=== PATIENT | female | born 1955 | race Caucasian/White ===

== ENCOUNTER → 2017-02-05 | Outpatient (CLI) | payer BC ==
[~2017-02-05] MED LIST: ACTIVELLA1 TAB PO; ALLEGRA-D 241 TABLET PO; LUMIGAN 0.50 DROP/2. BOTH EYES; PAROXETINE HCL20 MG PO
== END | disposition home or self-care (01) ==
LOC: NUC 10:18
DX: K82.8 Other specified diseases of gallbladder (principal); R11.0 Nausea
CPT/HCPCS: 78227; A9537; J2805

== ENCOUNTER 2017-08-22 09:44 | Emergency (ER) | payer BC ==
[~2017-08-22] VITALS: Ht 165.1 cm; Wt 79.0 kg
[2017-08-22 10:34] LABS: BASOPHIL (%) 0.5 % (0-1); BASOPHIL COUNT 0.1 K/uL (0-0.1); EOSINOPHIL (%) 0.3 % (0-5); HEMATOCRIT 41.2 % (36.0-46.0); IMMATURE GRANULOCYTE (%) 0.3 % (0.0-0.7); LYMPHOCYTE (%) 19.6 % (15-42); LYMPHOCYTE COUNT 1.8 K/uL (1.0-2.8); MCH 34.9 PG (29.0-34.0); MCV 102.7 FL (83-99); MONOCYTE (%) 9.7 % (3-12); MONOCYTE COUNT 0.9 K/uL (0-0.8); NEUTROPHIL (%) 69.6 % (45-76); NEUTROPHIL COUNT 6.5 K/uL (1.8-6.4); PLATELET COUNT 256 K/uL (156-360); RBC DIS.WIDTH-CV 12.9 % (11.8-14.6); RBC DIS.WIDTH-SD 49.5 % (39-53); RED BLOOD COUNT 4.01 M/uL (3.80-5.20); WHITE BLOOD COUNT 9.4 K/uL (4.1-10.2)
[2017-08-22 10:45] LABS: CHLORIDE 104 mEq/L (99-109); POTASSIUM 4.6 mEq/L (3.7-5.4); SODIUM 138 mEq/L (136-147)
[2017-08-22 10:47] LABS: GLUCOSE 106 mg/dL (70-99)
[2017-08-22 10:51] LABS: CREATININE 0.7 mg/dL (0.6-1.3); GFR ESTIMATE (CALCULATED) > 59 mL/min/; UREA NITROGEN (BUN) 9 mg/dL (9-23)
[2017-08-22 11:14] LABS: APPEARANCE CLOUDY ((CLEAR)); BILIRUBIN NEGATIVE; BLOOD NEGATIVE; COLOR YELLOW ((YELLOW)); GLUCOSE (STRIP) NEGATIVE; KETONES 5; LEUKOCYTES NEGATIVE; NITRITE NEGATIVE; PROTEIN (STRIP) 30; SPECIFIC GRAVITY 1.023 (1.000-1.030); UROBILINOGEN 0.2 MG/DL (0.2-1.0)
[2017-08-22 11:50] LABS: BACTERIA 2+ /HPF; EPITHELIAL CELLS 2+ /HPF; MUCUS 2+ /LPF; RED BLOOD CELLS NONE SEEN /HPF (0-5); UCUL ADDED? YES; WHITE BLOOD CELLS NONE SEEN /HPF (0-5)
[2017-08-22 14:26] VITALS: BP 127/67
== END 2017-08-22 14:35 | disposition home or self-care (01) ==
LOC: EME 09:44
PROVIDERS: Emergency Medicine
DX: J02.9 Acute pharyngitis, unspecified (principal); M54.2 Cervicalgia; H40.9 Unspecified glaucoma; F41.9 Anxiety disorder, unspecified; F32.9 Major depressive disorder, single episode, unspecified; Z87.891 Personal history of nicotine dependence; J30.2 Other seasonal allergic rhinitis; Z88.1 Allergy status to other antibiotic agents
CPT/HCPCS: 70491; 80048; 81003; 85025; 87086; 87502; 87651 90; 99281; 99284; J1885; J7030

== ENCOUNTER 2017-12-22 10:27 | Day surgery (SDC) | payer BC ==
[~2017-12-22] VITALS: Ht 167.6 cm; Wt 78.9 kg
[~2017-12-22 10:27] MED LIST changes: +ALLEGRA ALLERG180 MG PO; +LUMIGAN 0.50 DROP/22 BOTH EYES; +MOBIC7.5 MG PO; +PAXIL10 MG PO; +REFRESH PLUS1 EACH BOTH EYES; +SINGULAIR10 MG PO; +VENTOLIN HFA18 GM IH
[2017-12-22 10:40] VITALS: BP 119/59
[2017-12-22] MEDS ORDERED: NORCO 5/3251 TABLET PO (14:28)
[2017-12-22 14:55] VITALS: BP 123/60
[2017-12-22 15:30] VITALS: BP 107/52
== END 2017-12-22 15:42 | disposition home or self-care (01) ==
LOC: SDC 10:27
PROC: 0WUF0JZ Supplement Abdominal Wall with Synthetic Substitute, Open Approach (ICD-10-PCS; principal; 2017-12-22)
DX: K43.2 Incisional hernia without obstruction or gangrene (principal); F41.1 Generalized anxiety disorder; H40.9 Unspecified glaucoma; Z87.891 Personal history of nicotine dependence; Z88.1 Allergy status to other antibiotic agents
CPT/HCPCS: C1781; J0690; J1100; J2250; J2405; J3010; S0020